=== PATIENT | female | born 1965 | race Caucasian/White ===

== ENCOUNTER 2016-07-09 20:34 | Emergency (ER) | payer OTHER ==
[2016-07-09] MEDS ORDERED: Adacel Vial IM ONE ×2 (21:34→21:55)
[2016-07-09] MEDS ORDERED: Unasyn 3GM / NaCl 100ML 100 ML IV ONE (21:36)
[2016-07-09] MEDS ORDERED: Sodium Chloride 0.9% 1000 ML 1,000 ML IV SCH (21:45)
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
[2016-07-09] MEDS ORDERED: Unasyn 3GM / NaCl 100ML 100 ML ONE (21:54)
[2016-07-09] MEDS ORDERED: Sodium Chloride 0.9% 1000 ML 1,000 ML ONE (21:54)
[2016-07-09 22:01] LABS: BASOPHIL % 0.2 % (0.0-0.4); Eosinophil % 1.3 % (0.00-5.0); Granulocytes % 74.2 % (36.0-66.0); Mean Cell Volume 98.7 fl (78-100); Mean Corpuscular Hemoglobin 32.2 pg (26-32); Mean Platelet Volume 11.5 fl (6-9.5); Monocytes % 5.3 % (0.0-12.0); Platelet Count 187 K/mm3 (150-450); Red Blood Count 4.47 M/mm3 (4.1-5.4)
[2016-07-09] MEDS ORDERED: Zofran 4 MG/2 ML VIAL ONE (22:38)
[2016-07-09] MEDS ORDERED: MORPHINE SULFATE 4 MG INJ ONE (22:38)
[2016-07-09] MEDS ORDERED: Zofran 4 MG/2 ML VIAL IV ONE (22:40)
[2016-07-09] MEDS ORDERED: MORPHINE SULFATE 4 MG INJ IV ONE (22:40)
[2016-07-09] MEDS ORDERED: Norco 10/325 MG Tablet PO ONE (23:09)
[2016-07-09] MEDS ORDERED: Norco 10/325 MG Tablet ONE (23:38)
[2016-07-09 23:51] VITALS: BP 122/87; PULSE 87; O2SAT 98
--- NOTE | 2016-07-10 09:18 | XRAY ---
Indication: Redness and swelling following dog bite. Comparison: None 3 views of the left hand demonstrates first metacarpal soft tissue swelling. No other bony, articular, or soft tissue abnormalities.
== END 2016-07-09 23:50 | disposition home or self-care (01) ==
LOC: ED 20:34
DX: S61.452A Open bite of left hand, initial encounter (principal); L03.114 Cellulitis of left upper limb; W54.0XXA Bitten by dog, initial encounter
CPT/HCPCS: 36000; 36415; 73130; 85025; 87040; 90471; 90715; 96360; 96361; 96365; 96374; 96375; 99283; J0295; J2270; J2405

== ENCOUNTER 2016-11-24 22:09 | Emergency (ER) | payer OTHER ==
[2016-11-24] MEDS ORDERED: Ativan 1 MG SL ONE (22:45)
[2016-11-24] MEDS ORDERED: Ativan 1 MG ONE (22:57)
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
[2016-11-24 23:41] VITALS: BP 120/75; PULSE 89; O2SAT 97
== END 2016-11-24 23:40 | disposition home or self-care (01) ==
LOC: ED 22:09
DX: F31.9 Bipolar disorder, unspecified (principal)
CPT/HCPCS: 99284; A9270-GY

== ENCOUNTER 2019-12-09 18:37 | Emergency (ER) | payer OTHER ==
[2019-12-09] MEDS ORDERED: Norflex 60 MG/2 ML IM ONE (19:07)
[2019-12-09] MEDS ORDERED: TORAdol 30 mg Injection IM ONE (19:07)
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
[2019-12-09] MEDS ORDERED: DELTASONE 20 MG PO ONE (19:08)
[2019-12-09 19:40] VITALS: PULSE 89; O2SAT 100
[2019-12-09] MEDS ORDERED: TORAdol 30 mg Injection ONE (19:40)
[2019-12-09] MEDS ORDERED: DELTASONE 20 MG ONE (19:40)
[2019-12-09] MEDS ORDERED: Norflex 60 MG/2 ML ONE (19:40)
[2019-12-09 20:43] VITALS: BP 134/100
== END 2019-12-09 20:44 | disposition home or self-care (01) ==
LOC: ED 18:37
DX: M54.5 Low back pain (principal); M51.36 Other intervertebral disc degeneration, lumbar region
CPT/HCPCS: 96372; 99284; J1885; J2360; A9270-GY

== ENCOUNTER 2021-02-23 02:06 | Emergency (ER) | payer OTHER ==
[2021-02-23] MEDS ORDERED: Zofran 4 MG/2 ML VIAL IV ONE (02:23)
[2021-02-23] MEDS ORDERED: Hydromorphone 1 mg/ml Injection IV ONE (02:23)
[2021-02-23] MEDS ORDERED: Sodium Chloride 0.9% 1000 ML 1,000 ML IV STA (02:23)
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
[2021-02-23] MEDS ORDERED: Zofran 4 MG/2 ML VIAL ONE (02:52)
[2021-02-23] MEDS ORDERED: Hydromorphone 1 mg/ml Injection ONE (02:52)
[2021-02-23 02:53] LABS: Absolute Neutrophil Ct (ANC) 5.15 (1.4-6.9); BASOPHIL % 0.4 % (0.0-0.4); Basophil (Absolute #) 0.03 (0-0.4); Eosinophil % 1.6 % (0.00-5.0); Eosinophil (Absolute #) 0.13 (0-0.5); Hematocrit 40.5 % (35-47); Hemoglobin 13.3 gm/dl (12.0-16.0); Lymphocyte (Absolute #) 2.23 (1.0-4.6); Lymphocytes % 27.2 % (24.0-44.0); Mean Cell Volume 98.1 fl (78-100); Mean Corpuscular Hemoglobin 32.2 pg (26-32); Mean Corpuscular Hgb Concent. 32.8 g/dl (32-36); Monocyte (Absolute #) 0.65 (0.0-1.3); Monocytes % 7.9 % (0.0-12.0); Neutrophil % 62.9 % (36.0-66.0); Platelet Count 200 K/mm3 (150-450); Red Blood Count 4.13 M/mm3 (4.1-5.4); Red Cell Distribution Width 12.8 % (11.5-14.0); White Blood Count 8.2 K/mm3 (4.0-10.5)
[2021-02-23] MEDS ORDERED: Sodium Chloride 0.9% 1000 ML 1,000 ML ONE (02:53)
[2021-02-23 03:00] LABS: Appearance CLOUDY (CLEAR); Bacteria RARE /HPF (NEGATIVE); Bilirubin NEGATIVE (NEGATIVE); Blood LARGE Ery/ul (0-5); Epithelial Cells RARE /HPF (FEW); Glucose NEGATIVE (NEGATIVE); Ketones NEGATIVE (NEGATIVE); Leukocyte Esterase LARGE (NEGATIVE); Mucus SLIGHT /HPF (NEGATIVE); Nitrite NEGATIVE (NEGATIVE); Protein,Urine Dip 30 (Negative); Specific Gravity 1.018 (1.005-1.025); Urobilinogen 2 mg/dL (0-1); WBC 26-50 /HPF (0-5)
[2021-02-23 03:01] LABS: RBC >101 /HPF (0-2)
[2021-02-23 03:05] LABS: ALKALINE PHOSPHATASE 75 U/L (38-126); AMYLASE 77 U/L (30-110); ANION GAP 11.9 MEQ/L (5-15); BLOOD UREA NITROGEN 10 mg/dL (7-17); CHLORIDE 109 mmol/L (98-107); Calcium 9.7 mg/dL (8.4-10.2); Carbon Dioxide 24 mmol/L (22-30); Creatinine 1 0.73 mg/dL (0.52-1.04); EST GLOMERULAR FILTRATION RATE > 60.0 ML/MIN; Glucose 99 mg/dL (74-106); LIPASE 104 U/L (23-300); Potassium 3.1 mmol/L (3.5-5.1); SGOT/AST 31 U/L (14-36); SGPT/ALT 23 U/L (0-35); SODIUM 142 mmol/L (137-145); Total Protein 6.9 g/dL (6.3-8.2)
[2021-02-23] MEDS ORDERED: ROCEPHIN 1 Gm-D5w 50 ml Bag** 1 G/50 ML IVPB IV STA (04:16)
[2021-02-23] MEDS ORDERED: ROCEPHIN 1 Gm-D5w 50 ml Bag** 1 G/50 ML IVPB IV ONE (04:18)
[2021-02-23 05:36] VITALS: BP 133/93; PULSE 80; O2SAT 100
--- NOTE | 2021-02-23 08:26 | XRAY ---
Indication: Abdomen pain. Multiple contiguous axial images obtained through the abdomen and pelvis without contrast. Comparison: None. Lung bases are clear. Heart not enlarged. Small hiatal hernia. Stomach mildly distended with food/fluid. Noncontrasted stomach and bowel loops appear nonobstructed. Normal appendix. Mild scattered colonic fecal debris throughout. 2-3 mm left UPJ calculus with mild hydronephrosis. Gallbladder contracted without gallstones. Tiny hepatic/splenic calcified granulomas. No free fluid/air. Remaining liver, gallbladder, pancreas, spleen, adrenal glands, kidneys, ureters, bladder, and uterus unremarkable for noncontrast exam. Minimal aortoiliac calcifications without AAA. Osseous structures intact. Impression: 1. 2-3 mm left UPJ calculus producing partial obstructive uropathy. 2. Mild diffuse fecal stasis. 3. Incidental small hiatal hernia and old granulomatous disease. Comment: Preliminary interpretation made by [facility]. No critical discrepancy.
== END 2021-02-23 05:41 | disposition home or self-care (01) ==
LOC: ED 02:06
DX: N13.2 Hydronephrosis with renal and ureteral calculous obstruction (principal); Z79.899 Other long term (current) drug therapy
CPT/HCPCS: 36000; 36415; 74176; 80053; 81001; 82150; 83605; 83690; 85025; 87086; 96360; 96374; 99284; J0696; J1170; J2405

== ENCOUNTER 2021-04-19 07:41 | Day surgery (SDC) | payer OTHER ==
[2021-04-19] MEDS ORDERED: LIDOCAINE HCL 2% 100 MG/5 ML IJ ONE (07:42)
[2021-04-19] MEDS ORDERED: DIPRIVAN 200 MG/20 ML IV ONE (08:13)
[2021-04-19] MEDS ORDERED: Lactated Ringers 1,000 ML IV ONE (08:58)
--- NOTE | 2021-04-19 10:41 | XRAY ---
Indication: Bilateral L4-S1 MBB. Intraoperative fluoroscopy provided for 9 seconds. Single digital spot image submitted for interpretation demonstrate posterior needle tips projecting over the expected left and right L4-S1 nerve roots. Correlate with intraoperative findings/report.
--- NOTE | 2021-04-19 12:23 | XRAY ---
9 seconds fluoroscopy time in surgery for bilateral L4-S1 MBB.
== END 2021-04-19 08:47 | disposition home or self-care (01) ==
LOC: SDC-PAIN 07:41
PROVIDERS: ATTEND Psychiatry & Neurology Pain Medicine
DX: M47.816 Spondylosis without myelopathy or radiculopathy, lumbar region (principal)
CPT/HCPCS: 36415; 64493; 64494; 72020; 77002; 81025; J2704

== ENCOUNTER 2024-10-25 01:11 | Emergency (ER) | payer OTHER ==
[2024-10-25 01:23] VITALS: RESP 20; TEMP 97.6
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
[2024-10-25 01:34] LABS: Absolute Neutrophil Ct (ANC) 5.83 x10^3/uL (1.56-6.13); BASOPHIL % 0.5 % (0.1-1.2); Basophil (Absolute #) 0.05 x10^3/uL (0.01-0.08); Eosinophil % 1.4 % (0.7-5.8); Eosinophil (Absolute #) 0.14 x10^3/uL (0.04-0.36); Hematocrit 40.5 % (34.1-44.9); Hemoglobin 13.5 g/dL (11.2-15.7); IMMATURE GRAN # 0.05 x10^3u/L (0.001-0.031); IMMATURE GRAN % 0.5 % (0.001-0.429); Lymphocyte (Absolute #) 3.55 x10^3/uL (1.18-3.74); Lymphocytes % 34.7 % (19.3-51.7); Mean Cell Volume 96.4 fL (79.4-94.8); Mean Corpuscular Hemoglobin 32.1 pg (25.6-32.2); Mean Corpuscular Hgb Concent. 33.3 g/dL (32.2-35.5); Monocyte (Absolute #) 0.61 x10^3/uL (0.24-0.86); Neutrophil % 56.9 % (34.0-71.1); Platelet Count 224 x10^3/uL (182-369); Red Cell Distribution Width 13.7 % (11.7-14.4); White Blood Count 10.2 x10^3/uL (3.98-10.04)
[2024-10-25 01:51] LABS: ALBUMIN 4.3 g/dL (3.5-5.0); ANION GAP 12.8 MEQ/L (5-15); BILIRUBIN,TOTAL 0.6 mg/dL (0.2-1.3); Creatinine 1 0.7 mg/dL (0.52-1.04); EST GLOMERULAR FILTRATION RATE 100.2 ML/MIN; Potassium 3.8 mmol/L (3.5-5.1); Total Protein 7.2 g/dL (6.3-8.2)
[2024-10-25 02:16] VITALS: BP 118/72; PULSE 95
[2024-10-25 02:18] VITALS: O2SAT 99
== END 2024-10-25 02:19 | disposition left against medical advice (07) ==
LOC: ED 01:11
DX: I24.9 Acute ischemic heart disease, unspecified (principal); R07.9 Chest pain, unspecified; R06.02 Shortness of breath; R53.83 Other fatigue; Z79.891 Long term (current) use of opiate analgesic; Z79.899 Other long term (current) drug therapy; Z72.0 Tobacco use
CPT/HCPCS: 36415; 80053; 84484; 85025; 85379; 93005; 93041; 94760; 99284